=== PATIENT | male | born 1990 | race Two or more races ===

== ENCOUNTER 2017-06-23 04:02 | Emergency (ER) | payer SELFPAY ==
[~2017-06-23] VITALS: Ht 180.3 cm; Wt 93.0 kg
[2017-06-23] MEDS ORDERED: BACITRACIN ZINC OINT UDPKT TOP ONE (05:15)
[2017-06-23] MEDS ORDERED: TETANUS, DIPHTHERIA, PERTUSSIS VAC/PF 0.5ML (>7YR OLD) IM ONE (05:15)
[2017-06-23] MEDS ORDERED: LIDOCAINE HCL 1%/EPI 1:200,000 30 ML VIAL MC ONE (05:15)
[2017-06-23 07:44] VITALS: BP 118/68
== END 2017-06-23 07:52 | disposition home or self-care (01) ==
LOC: ER 04:02
DX: S01.01XA Laceration without foreign body of scalp, initial encounter (principal); S02.32XA Fracture of orbital floor, left side, initial encounter for closed fracture; Y08.89XA Assault by other specified means, initial encounter; Z23 Encounter for immunization; Z88.0 Allergy status to penicillin
CPT/HCPCS: 13121; 70450; 70486; 72125; 90471; 90715; 99284; Z7610